=== PATIENT | male | born 1980 | race Caucasian/White ===

== ENCOUNTER 2018-07-15 03:49 | Emergency (ER) | payer OTHER ==
[~2018-07-15] VITALS: Ht 177.8 cm; Wt 90.9 kg
[2018-07-15 03:50] VITALS: BP 139/89
[2018-07-15] MEDS ORDERED: AMOX875T PO (03:57)
[2018-07-15] MEDS ORDERED: IBUP-1114 PO (04:00)
[2018-07-15] MEDS ORDERED: RABIES VACCINE HUMAN 2.5 INTERNATIONAL UNITS/ML VIAL (90675) IM ONE (04:15)
== END 2018-07-15 04:40 | disposition home or self-care (01) ==
LOC: M ED 03:49
DX: Z23 Encounter for immunization (principal); Z20.3 Contact with and (suspected) exposure to rabies